=== PATIENT | male | born 1970 | race African-American/Black ===

== ENCOUNTER 2019-04-26 21:57 | Emergency (ER) | payer BC ==
[~2019-04-26] VITALS: Ht 180.3 cm; Wt 84.0 kg
[2019-04-26] MEDS ORDERED: LIDOCAINE HCL/PF 1% 10 MG/ML 5ML VIAL IJ ONE (23:15)
[2019-04-26] MEDS ORDERED: BACITRACIN ZINC OINT UDPKT TOP ONE (23:15)
[2019-04-27 00:57] VITALS: BP 181/114
== END 2019-04-27 01:00 | disposition home or self-care (01) ==
LOC: ER 21:57
DX: S61.511A Laceration without foreign body of right wrist, initial encounter (principal); I10 Essential (primary) hypertension; J45.909 Unspecified asthma, uncomplicated; F12.10 Cannabis abuse, uncomplicated; W25.XXXA Contact with sharp glass, initial encounter; Y93.89 Activity, other specified; Y92.018 Other place in single-family (private) house as the place of occurrence of the external cause
CPT/HCPCS: 12001; 73110; 99283; J3490; Z7610